=== PATIENT | female | born 1980 | race Caucasian/White ===

== ENCOUNTER 2020-06-10 10:18 | Emergency (ER) | payer MEDICARE, MEDICAID ==
[~2020-06-10] VITALS: Ht 172.7 cm; Wt 190.0 kg
[~2020-06-10 10:18] MED LIST: ADVAIR DISK2 IN; ALBUTEROL0.083 % IN; LORTAB 5 OR; PREDNISONE5 M1 OR; PROVENTIL IN; PROVENTIL INH17 GM IN; SINGULAIR 10 MG10 MG OR; ZITHROMAX250 MG OR; [UNRECOGNIZED DRUG - OTHER] XX
[2020-06-10] MEDS ORDERED: LASIX20 MG PO (10:37)
[2020-06-10] MEDS ORDERED: FLOXIN OTIC0.3 % OT (10:37)
[2020-06-10] MEDS ORDERED: MILLIPRED5 M1 PO (10:37)
[2020-06-10] MEDS ORDERED: PAXIL40 MG PO (10:38)
[2020-06-10] MEDS ORDERED: AMOXICILLIN500 MG PO (10:58)
[2020-06-10 11:48] VITALS: BP 163/93
[2020-09-16] MEDS ORDERED: PREDNISONE50 MG PO ×2 (01:17)
[2020-09-16] MEDS ORDERED: VISTARIL50 MG PO (02:14)
[2020-09-16] MEDS ORDERED: ALBUTEROL1.25 MG/3 NEB (22:07)
[2020-09-16] MEDS ORDERED: SINGULAIR10 MG PO (22:08)
[2020-09-16] MEDS ORDERED: RAYOS5 MG PO (22:09)
[2020-09-16] MEDS ORDERED: PROTONIX40 M2 PO (22:10)
[2020-09-16] MEDS ORDERED: VISTARIL 50MG C50 M1 PO (22:11)
[2020-09-16] MEDS ORDERED: PAXIL40 MG PO (22:11)
[2020-09-16] MEDS ORDERED: FERRAPLUS 90 PO (22:12)
[2020-09-16] MEDS ORDERED: LASIX20 MG PO (22:12)
[2020-09-16] MEDS ORDERED: FOLIC ACID1 M1 PO (22:13)
[2020-09-16] MEDS ORDERED: KLONOPIN0.5 M1 PO (22:15)
== END 2020-06-10 11:35 | disposition home or self-care (01) ==
LOC: ED 10:18
DX: H66.91 Otitis media, unspecified, right ear (principal); H61.22 Impacted cerumen, left ear

== ENCOUNTER 2020-07-27 15:56 | Emergency (ER) | payer MEDICARE, MEDICAID ==
[~2020-07-27] VITALS: Ht 172.7 cm; Wt 200.0 kg
[~2020-07-27 15:56] MED LIST changes: +AMOXICILLIN500 MG PO; +FLOXIN OTIC0.3 % OT; +LASIX20 MG PO; +MILLIPRED5 M1 PO; +PAXIL40 MG PO
[2020-07-27 17:13] LABS: HEMATOCRIT 41.5 % (37.0-47.0); HEMOGLOBIN 13.2 g/dl (12.0-16.0); IMMATURE GRANULOCYTES 0.4 % (0.0-5.0); MEAN CELL VOLUME 77.9 fL CALC (80.0-100.0); MEAN CORPUSCULAR HGB 24.8 pG CALC (26.0-32.0); MEAN CORPUSCULAR HGB CONC 31.8 g/dL CAL (32.0-36.0); NEUT# 7.34 thou/uL (2.00-7.15); RED BLOOD COUNT 5.33 mill/uL (4.20-5.60); RED CELL DISTRI WIDTH 14.2 % (11.5-15.5)
[2020-07-27] MEDS ORDERED: BREO ELLIPTA1 INH IN (17:17)
[2020-07-27] MEDS ORDERED: ALBUTERO1 IN (17:18)
[2020-07-27] MEDS ORDERED: PROTONIX40 M2 PO (17:19)
[2020-07-27] MEDS ORDERED: NUCALA100 MG IM (17:20)
[2020-07-27] MEDS ORDERED: FOLIC ACI1 PO (17:21)
[2020-07-27] MEDS ORDERED: FERRAPLUS 90 PO (17:21)
[2020-07-27 17:24] LABS: ALBUMIN 4.4 g/dL (3.2-5.0); ALKALINE PHOSPHATASE 93 u/l (38-126); ANION GAP 14 (6-22 (CALC)); BUN 10 mg/dL (7-17); BUN/CREATININE RATIO 14 (12-20 (CALC)); CARBON DIOXIDE 22 mmol/l (22-30); CHLORIDE 102 mmol/l (95-108); CREATININE 0.7 mg/dL (0.5-1.0); GFR > 60 ML/MIN (>=60 (CALC)); GFR FOR AFR.AMER. > 60 ML/MIN (>=60 (CALC)); POTASSIUM 4.1 mmol/l (3.5-5.1); SGOT/AST 30 u/l (14-36); SODIUM 134 mmol/l (137-146); TOTAL PROTEIN 7.6 g/dL (6.3-8.2)
[2020-07-27 17:28] LABS: C-REACTIVE PROTEIN 3.3 mg/dL (0-0.9)
[2020-07-27 17:34] LABS: BILIRUBIN, TOTAL 0.5 mg/dL (0.0-1.4); HCG SERUM/URINE (NEG/POS) NEGATIVE (NEGATIVE)
[2020-07-27] MEDS ORDERED: CYCLOBENZAPR5 MG PO ×2 (18:29)
[2020-07-27] MEDS ORDERED: ONDANSETRON4 MG PO ×2 (18:29)
[2020-07-27 18:45] VITALS: BP 130/68
[2020-09-16] MEDS ORDERED: PREDNISONE50 MG PO ×2 (01:17)
[2020-09-16] MEDS ORDERED: VISTARIL50 MG PO (02:14)
[2020-09-16] MEDS ORDERED: ALBUTEROL1.25 MG/3 NEB (22:07)
[2020-09-16] MEDS ORDERED: SINGULAIR10 MG PO (22:08)
[2020-09-16] MEDS ORDERED: RAYOS5 MG PO (22:09)
[2020-09-16] MEDS ORDERED: PROTONIX40 M2 PO (22:10)
[2020-09-16] MEDS ORDERED: VISTARIL 50MG C50 M1 PO (22:11)
[2020-09-16] MEDS ORDERED: PAXIL40 MG PO (22:11)
[2020-09-16] MEDS ORDERED: LASIX20 MG PO (22:12)
[2020-09-16] MEDS ORDERED: FERRAPLUS 90 PO (22:12)
[2020-09-16] MEDS ORDERED: FOLIC ACID1 M1 PO (22:13)
[2020-09-16] MEDS ORDERED: KLONOPIN0.5 M1 PO (22:15)
[2020-09-17] MEDS ORDERED: PREDNISONE10 MG PO (09:25)
== END 2020-07-27 18:45 | disposition home or self-care (01) ==
LOC: ED 15:56
PROVIDERS: Family Medicine
DX: R07.9 Chest pain, unspecified (principal); R05 Cough; J45.909 Unspecified asthma, uncomplicated; E66.9 Obesity, unspecified; Z20.828 Contact with and (suspected) exposure to other viral communicable diseases

== ENCOUNTER 2020-08-09 10:47 | Emergency (ER) | payer MEDICARE, MEDICAID ==
[~2020-08-09] VITALS: Ht 172.7 cm; Wt 198.0 kg
[~2020-08-09 10:47] MED LIST changes: +ALBUTERO1 IN; +BREO ELLIPTA1 INH IN; +CYCLOBENZAPR5 MG PO; +FERRAPLUS 90 PO; +FOLIC ACI1 PO; +NUCALA100 MG IM; +ONDANSETRON4 MG PO; +PROTONIX40 M2 PO
[2020-08-09 13:43] VITALS: BP 139/79
[2020-09-16] MEDS ORDERED: PREDNISONE50 MG PO ×2 (01:17)
[2020-09-16] MEDS ORDERED: VISTARIL50 MG PO (02:14)
[2020-09-16] MEDS ORDERED: ALBUTEROL1.25 MG/3 NEB (22:07)
[2020-09-16] MEDS ORDERED: SINGULAIR10 MG PO (22:08)
[2020-09-16] MEDS ORDERED: RAYOS5 MG PO (22:09)
[2020-09-16] MEDS ORDERED: PROTONIX40 M2 PO (22:10)
[2020-09-16] MEDS ORDERED: PAXIL40 MG PO (22:11)
[2020-09-16] MEDS ORDERED: VISTARIL 50MG C50 M1 PO (22:11)
[2020-09-16] MEDS ORDERED: FERRAPLUS 90 PO (22:12)
[2020-09-16] MEDS ORDERED: LASIX20 MG PO (22:12)
[2020-09-16] MEDS ORDERED: FOLIC ACID1 M1 PO (22:13)
[2020-09-16] MEDS ORDERED: KLONOPIN0.5 M1 PO (22:15)
[2020-09-17] MEDS ORDERED: ZITHROMAX250 MG PO (09:23)
[2020-09-17] MEDS ORDERED: PREDNISONE10 MG PO (09:25)
== END 2020-08-09 13:43 | disposition home or self-care (01) ==
LOC: ED 10:47
DX: S09.90XA Unspecified injury of head, initial encounter (principal); S16.1XXA Strain of muscle, fascia and tendon at neck level, initial encounter; E66.9 Obesity, unspecified; J45.909 Unspecified asthma, uncomplicated; W18.2XXA Fall in (into) shower or empty bathtub, initial encounter; Y93.E1 Activity, personal bathing and showering

== ENCOUNTER 2020-10-16 16:19 | Emergency (ER) | payer MEDICARE, MEDICAID ==
[~2020-10-16] VITALS: Ht 172.7 cm; Wt 193.2 kg
[~2020-10-16 16:19] MED LIST changes: +ALBUTEROL1.25 MG/3 NEB; +FOLIC ACID1 M1 PO; +KLONOPIN0.5 M1 PO; +PREDNISONE10 MG PO; +PREDNISONE50 MG PO; +RAYOS5 MG PO; +SINGULAIR10 MG PO; +VISTARIL 50MG C50 M1 PO; +VISTARIL50 MG PO; +ZITHROMAX250 MG PO
[2020-10-16 19:26] LABS: ALBUMIN 4.1 g/dL (3.2-5.0); ALKALINE PHOSPHATASE 73 u/l (38-126); BILIRUBIN, TOTAL 0.3 mg/dL (0.0-1.4); BUN 10 mg/dL (7-17); BUN/CREATININE RATIO 12 (12-20 (CALC)); CARBON DIOXIDE 28 mmol/l (22-30); CHLORIDE 102 mmol/l (95-108); CREATININE 0.9 mg/dL (0.5-1.0); GFR > 60 ML/MIN (>=60 (CALC)); GFR FOR AFR.AMER. > 60 ML/MIN (>=60 (CALC)); LIPASE 255 u/l (23-300); SGOT/AST 21 u/l (14-36); SODIUM 138 mmol/l (137-146); TOTAL PROTEIN 6.8 g/dL (6.3-8.2)
[2020-10-16 19:28] LABS: ANION GAP 13 (6-22 (CALC)); POTASSIUM 4.8 mmol/l (3.5-5.1)
[2020-10-16 19:31] LABS: HEMATOCRIT 40.6 % (37.0-47.0); HEMOGLOBIN 12.7 g/dl (12.0-16.0); IMMATURE GRANULOCYTES 0.5 % (0.0-5.0); MEAN CELL VOLUME 80.9 fL CALC (80.0-100.0); MEAN CORPUSCULAR HGB 25.3 pG CALC (26.0-32.0); MEAN CORPUSCULAR HGB CONC 31.3 g/dL CAL (32.0-36.0); NEUT# 7.18 thou/uL (2.00-7.15); RED BLOOD COUNT 5.02 mill/uL (4.20-5.60); RED CELL DISTRI WIDTH 14.5 % (11.5-15.5)
[2020-10-16 21:34] LABS: URINE BILIRUBIN - DIPSTICK NEGATIVE (NEGATIVE); URINE BLOOD DIPSTICK TRACE-INTACT (NEGATIVE); URINE COLOR YELLOW; URINE GLUCOSE - DIPSTICK NEGATIVE (NEGATIVE); URINE KETONE NEGATIVE (NEGATIVE); URINE LEUK ESTERASE NEGATIVE (NEGATIVE); URINE NITRITE - DIPSTICK NEGATIVE (Negative); URINE PROTEIN - DIPSTICK NEGATIVE (NEG-TRACE); URINE SPECIFIC GRAVITY >=1.030; URINE UROBILINOGEN - DIPSTICK 0.2 E.U./dL (0.2)
[2020-10-16 21:44] VITALS: BP 140/78
[2020-10-16] MEDS ORDERED: ZOFRAN4 MG/TAB PO (21:47)
== END 2020-10-16 22:00 | disposition home or self-care (01) ==
LOC: ED 16:19
PROVIDERS: Family Medicine
DX: R10.84 Generalized abdominal pain (principal); J45.909 Unspecified asthma, uncomplicated; K21.9 Gastro-esophageal reflux disease without esophagitis; E66.9 Obesity, unspecified; F41.9 Anxiety disorder, unspecified
CPT/HCPCS: Q9967

== ENCOUNTER 2020-10-26 07:01 | Emergency (ER) | payer MEDICARE, MEDICAID ==
[~2020-10-26] VITALS: Ht 172.7 cm; Wt 188.6 kg
[~2020-10-26 07:01] MED LIST changes: +ZOFRAN4 MG/TAB PO
[2020-10-26 09:04] LABS: HEMATOCRIT 43.7 % (37.0-47.0); HEMOGLOBIN 14.1 g/dl (12.0-16.0); IMMATURE GRANULOCYTES 0.6 % (0.0-5.0); MEAN CELL VOLUME 78.5 fL CALC (80.0-100.0); MEAN CORPUSCULAR HGB 25.3 pG CALC (26.0-32.0); MEAN CORPUSCULAR HGB CONC 32.3 g/dL CAL (32.0-36.0); NEUT# 8.67 thou/uL (2.00-7.15); RED BLOOD COUNT 5.57 mill/uL (4.20-5.60); RED CELL DISTRI WIDTH 14.4 % (11.5-15.5)
[2020-10-26 09:23] LABS: ALBUMIN 4.6 g/dL (3.2-5.0); ALKALINE PHOSPHATASE 86 u/l (38-126); ANION GAP 15 (6-22 (CALC)); BUN 10 mg/dL (7-17); BUN/CREATININE RATIO 13 (12-20 (CALC)); CARBON DIOXIDE 25 mmol/l (22-30); CHLORIDE 102 mmol/l (95-108); CREATININE 0.8 mg/dL (0.5-1.0); GFR > 60 ML/MIN (>=60 (CALC)); GFR FOR AFR.AMER. > 60 ML/MIN (>=60 (CALC)); LIPASE 70 u/l (23-300); POTASSIUM 4.1 mmol/l (3.5-5.1); SGOT/AST 30 u/l (14-36); SODIUM 138 mmol/l (137-146); TOTAL PROTEIN 7.9 g/dL (6.3-8.2)
[2020-10-26 09:33] LABS: BILIRUBIN, TOTAL 0.5 mg/dL (0.0-1.4)
[2020-10-26 11:05] LABS: URINE BILIRUBIN - DIPSTICK NEGATIVE (NEGATIVE); URINE BLOOD DIPSTICK TRACE-INTACT (NEGATIVE); URINE COLOR YELLOW; URINE GLUCOSE - DIPSTICK NEGATIVE (NEGATIVE); URINE KETONE NEGATIVE (NEGATIVE); URINE LEUK ESTERASE NEGATIVE (NEGATIVE); URINE NITRITE - DIPSTICK NEGATIVE (Negative); URINE PH 6.5 (4.5-8.0); URINE PROTEIN - DIPSTICK NEGATIVE (NEG-TRACE); URINE SPECIFIC GRAVITY <=1.005; URINE UROBILINOGEN - DIPSTICK 0.2 E.U./dL (0.2)
[2020-10-26] MEDS ORDERED: HALDOL5 M1 PO (11:15)
[2020-10-26] MEDS ORDERED: REGLAN10 MG PO (11:15)
[2020-10-26] MEDS ORDERED: ONDANSETRON4 MG PO (11:17)
[2020-10-26 12:07] VITALS: BP 138/91
[2020-10-27] MEDS ORDERED: DOXYCYCL HYC100 MG PO (20:19)
[2020-10-27] MEDS ORDERED: PROTONIX40 MG PO (22:59)
== END 2020-10-26 12:07 | disposition home or self-care (01) ==
LOC: ED 07:01
PROVIDERS: Family Medicine
DX: R10.84 Generalized abdominal pain (principal); R11.2 Nausea with vomiting, unspecified; E66.9 Obesity, unspecified; K31.84 Gastroparesis; J45.909 Unspecified asthma, uncomplicated; K21.9 Gastro-esophageal reflux disease without esophagitis; F41.9 Anxiety disorder, unspecified
CPT/HCPCS: Q9967

== ENCOUNTER 2020-10-27 19:29 | Emergency (ER) | payer MEDICARE, MEDICAID ==
[~2020-10-27] VITALS: Ht 172.7 cm; Wt 200.0 kg
[~2020-10-27 19:29] MED LIST changes: +HALDOL5 M1 PO; +REGLAN10 MG PO
[2020-10-27] MEDS ORDERED: DOXYCYCL HYC100 MG PO (20:19)
[2020-10-27 20:44] LABS: HEMATOCRIT 42.5 % (37.0-47.0); HEMOGLOBIN 13.8 g/dl (12.0-16.0); IMMATURE GRANULOCYTES 0.5 % (0.0-5.0); MEAN CELL VOLUME 77.7 fL CALC (80.0-100.0); MEAN CORPUSCULAR HGB 25.2 pG CALC (26.0-32.0); MEAN CORPUSCULAR HGB CONC 32.5 g/dL CAL (32.0-36.0); NEUT# 11.11 thou/uL (2.00-7.15); RED BLOOD COUNT 5.47 mill/uL (4.20-5.60)
[2020-10-27 20:55] LABS: ALBUMIN 4.6 g/dL (3.2-5.0); ALKALINE PHOSPHATASE 82 u/l (38-126); AMYLASE 43 u/l (30-110); ANION GAP 15 (6-22 (CALC)); BILIRUBIN, TOTAL 0.5 mg/dL (0.0-1.4); BUN 6 mg/dL (7-17); BUN/CREATININE RATIO 9 (12-20 (CALC)); CARBON DIOXIDE 24 mmol/l (22-30); CHLORIDE 102 mmol/l (95-108); CREATININE 0.6 mg/dL (0.5-1.0); GFR > 60 ML/MIN (>=60 (CALC)); GFR FOR AFR.AMER. > 60 ML/MIN (>=60 (CALC)); LIPASE 66 u/l (23-300); POTASSIUM 3.9 mmol/l (3.5-5.1); SGOT/AST 26 u/l (14-36); SODIUM 137 mmol/l (137-146); TOTAL PROTEIN 7.8 g/dL (6.3-8.2)
[2020-10-27] MEDS ORDERED: PROTONIX40 MG PO (22:59)
[2020-10-27 23:05] VITALS: BP 156/72
== END 2020-10-27 23:07 | disposition home or self-care (01) ==
LOC: ED 19:29
PROVIDERS: Emergency Medicine
DX: R10.32 Left lower quadrant pain (principal); R11.2 Nausea with vomiting, unspecified; J45.909 Unspecified asthma, uncomplicated; K21.9 Gastro-esophageal reflux disease without esophagitis; F41.9 Anxiety disorder, unspecified; E66.9 Obesity, unspecified
CPT/HCPCS: Q9967; S0164

== ENCOUNTER 2025-01-14 17:21 | Emergency (ER) | payer MEDICARE, MEDICAID ==
[~2025-01-14] VITALS: Ht 172.7 cm; Wt 200.0 kg
[2025-01-14] VITALS (9 sets, daily range): BP systolic 137–179; BP diastolic 61–120
[~2025-01-14 17:21] MED LIST changes: +DOXYCYCL HYC100 MG PO; +PROTONIX40 MG PO
[2025-01-14] MEDS ORDERED: SODIUM CHLORIDE 0.9% 1,000 ML IV STA (17:43)
[2025-01-14] MEDS ORDERED: HALOPERIDOL LACTATE 5 MG/ML SDV IV ONE (17:45)
[2025-01-14 17:56] LABS: BASO% 0.2 % (0-3); EOS% 0.2 % (0-8); HEMATOCRIT 38.2 % (37.0-47.0); HEMOGLOBIN 11.9 g/dl (12.0-16.0); IMMATURE GRANULOCYTES 0.5 % (0.0-5.0); LYMPH% 8.4 % (15-41); MEAN CORPUSCULAR HGB 22.4 pG CALC (26.0-32.0); MEAN CORPUSCULAR HGB CONC 31.2 g/dL CAL (32.0-36.0); MONO% 3.7 % (2-13); NEUT# 11.14 thou/uL (2.00-7.15); RED BLOOD COUNT 5.31 mill/uL (4.20-5.60); RED CELL DISTRI WIDTH 16.7 % (11.5-15.5)
[2025-01-14 18:09] LABS: MEAN CELL VOLUME 71.9 fL CALC (80.0-100.0)
[2025-01-14 18:11] LABS: ALBUMIN 4.6 g/dL (3.2-5.0); BILIRUBIN, TOTAL 0.6 mg/dL (0.02-1.3); CREATININE 0.6 mg/dL (0.5-1.0); MAGNESIUM 1.7 mg/dL (1.6-2.3); POTASSIUM 4.4 mmol/l (3.5-5.1); TOTAL PROTEIN 7.6 g/dL (6.3-8.2)
[2025-01-14] MEDS ORDERED: MAGNESIUM OXIDE 400 MG/TAB PO ONE (18:45)
== END 2025-01-14 19:25 | disposition home or self-care (01) ==
LOC: ED 17:21
PROVIDERS: Family Medicine
DX: R11.2 Nausea with vomiting, unspecified (principal); K31.84 Gastroparesis; F41.9 Anxiety disorder, unspecified; K21.9 Gastro-esophageal reflux disease without esophagitis; J45.909 Unspecified asthma, uncomplicated; E66.01 Morbid (severe) obesity due to excess calories; I89.0 Lymphedema, not elsewhere classified
CPT/HCPCS: J1630